=== PATIENT | male | born 1975 | race Caucasian/White ===

== ENCOUNTER → 2024-06-10 | Outpatient (CLI) | payer SELFPAY ==
[2024-06-10 14:59] LABS: Ferritin 143 ng/mL (37-417); Free T3 2.7 pg/mL (2.18-3.98); Iron 70 ug/dL (65-175)
[2024-06-10 16:46] LABS: Fibrinogen 407 mg/dl (203-444)
[2024-06-12 18:08] LABS: Thyroglobulin Antibody < 1.0 IU/mL (0.0-0.9); Thyroglobulin, Serum Qt. 13.9 ng/mL (1.4-29.2); Thyroid Peroxidase AB 13 IU/mL (0-34)
== END | disposition home or self-care (01) ==
LOC: BIMLAB 11:23
PROVIDERS: PCP Nurse Practitioner Family; Visit Provider Nurse Practitioner Family
DX: F41.9 Anxiety disorder, unspecified (principal); F32.A Depression, unspecified; Z11.9 Encounter for screening for infectious and parasitic diseases, unspecified; R61 Generalized hyperhidrosis; G47.00 Insomnia, unspecified; R45.4 Irritability and anger; R60.0 Localized edema; G90.89 Other disorders of autonomic nervous system; H53.129 Transient visual loss, unspecified eye; R51.9 Headache, unspecified; G62.9 Polyneuropathy, unspecified
CPT/HCPCS: 36415; 82627; 82728; 83090; 83540; 84403; 84432; 84439; 84443; 84481; 85384; 86376; 86800; 82626